=== PATIENT | male | born 1960 | race Caucasian/White ===

== ENCOUNTER 2022-06-18 12:48 | Inpatient (IN) | payer OTHER ==
[~2022-06-18] VITALS: Ht 175.3 cm; Wt 99.8 kg
[2022-06-18 13:07] VITALS: BP_SYST 108
[2022-06-18] MEDS ORDERED: MED4 PO (13:59)
[2022-06-18] MEDS ORDERED: BENZ100C92 PO (13:59)
[2022-06-18] MEDS ORDERED: ENOXAPARIN SODIUM 100 MG/ML SYRINGE SUBCUT ONE (14:15)
[2022-06-18] MEDS ORDERED: cefTRIAXone 1 GM IVPB PREMIX 50 ML IV ONE (14:15)
[2022-06-18] MEDS ORDERED: NACL 0.9% 1,000 ML IV ONE (14:15)
[2022-06-18] MEDS ORDERED: AZITHROMYCIN 500 MG in NS 250 ML IV ONE (14:15)
[2022-06-18 15:46] LABS: BASOPHILS % (AUTO) 0.1 % (0.0-2.0); EOSINOPHILS % (AUTO) 0.1 % (0.0-4.0); HEMATOCRIT 40.8 % (36-54); HEMOGLOBIN 14.3 g/dL (14.0-18.0); LYMPHOCYTES # (AUTO) 0.6 K/uL (1.0-5.5); LYMPHOCYTES % (AUTO) 4.3 % (20.5-51.5); MEAN CORPUSCULAR HEMOGLOBIN 31 pg (27-31); MEAN CORPUSCULAR HGB CONC 35 % (32-36); MEAN CORPUSCULAR VOLUME 88 fL (79.0-98.0); MONOCYTES # (AUTO) 0.4 K/uL (0.0-1.0); MONOCYTES % (AUTO) 2.6 % (1.7-9.3); NEUTROPHILS # (AUTO) 13.2 K/uL (1.8-7.7); NEUTROPHILS % (AUTO) 92.9 % (40.0-70.0); PLATELET COUNT (AUTO) 166 K/uL (130-430); RED BLOOD CELL COUNT(AUTO) 4.65 MIL/uL (4.2-6.2); RED CELL DISTRIBUTION WIDTH 14.1 % (9.0-15.0); WHITE BLOOD COUNT (AUTO) 14.2 K/uL (4.8-10.8)
[2022-06-18] MEDS ORDERED: AZITHROMYCIN 500 MG/VIAL (ZITHROMAX) IV ONE (15:57)
[2022-06-18 16:11] LABS: ALBUMIN 2.8 g/dL (3.4-4.8); CALCIUM 9.1 mg/dL (8.4-11.0); CREATININE 2.02 mg/dL (0.55-1.30); TOTAL BILIRUBIN 1.3 mg/dL (0.0-1.0)
[2022-06-18] MEDS ORDERED: VITD400 PO (16:43)
[2022-06-18] MEDS ORDERED: ALLO300T2 PO (16:43)
[2022-06-18] MEDS ORDERED: PANTOPRAZOLE SODIUM 40 MG TAB PO ONE (21:15)
[2022-06-18] MEDS ORDERED: ACETAMINOPHEN 325 MG TABLET PO PRN (21:15)
[2022-06-18] MEDS ORDERED: traMADol HCL HCL 50 MG TABLET (ULTRAM) PO PRN (21:30)
[2022-06-18 22:21] VITALS: BP_SYST 142
[2022-06-18] MEDS: NACL 0.9% 1,000 ML IV SCH (23:00)
[2022-06-18] MEDS: DEXAMETHASONE SOD PHOSPHATE 10 MG/ML VIAL IVP SCH (23:23)
[2022-06-18] MEDS: ASCORBIC ACID 500 MG TABLET PO SCH (23:23)
[2022-06-19] VITALS: BP_SYST 126
[2022-06-19] MEDS: NACL 0.9% 1,000 ML IV SCH ×3 (01:15→21:30)
[2022-06-19 07:21] LABS: BASOPHILS % (AUTO) 0.1 % (0.0-2.0); HEMATOCRIT 38.1 % (36-54); HEMOGLOBIN 13.3 g/dL (14.0-18.0); LYMPHOCYTES # (AUTO) 0.5 K/uL (1.0-5.5); LYMPHOCYTES % (AUTO) 4.9 % (20.5-51.5); MEAN CORPUSCULAR HEMOGLOBIN 31 pg (27-31); MEAN CORPUSCULAR HGB CONC 35 % (32-36); MEAN CORPUSCULAR VOLUME 88 fL (79.0-98.0); MONOCYTES # (AUTO) 0.1 K/uL (0.0-1.0); MONOCYTES % (AUTO) 1.2 % (1.7-9.3); NEUTROPHILS # (AUTO) 9.3 K/uL (1.8-7.7); NEUTROPHILS % (AUTO) 93.8 % (40.0-70.0); PLATELET COUNT (AUTO) 172 K/uL (130-430); RED BLOOD CELL COUNT(AUTO) 4.36 MIL/uL (4.2-6.2); RED CELL DISTRIBUTION WIDTH 13.9 % (9.0-15.0); WHITE BLOOD COUNT (AUTO) 9.9 K/uL (4.8-10.8)
[2022-06-19 07:47] LABS: ALBUMIN 2.4 g/dL (3.4-4.8); CREATININE 1.63 mg/dL (0.55-1.30); PHOSPHORUS 4.1 mg/dL (2.7-4.5); TOTAL BILIRUBIN 0.6 mg/dL (0.0-1.0)
[2022-06-19 08:00] VITALS: BP_SYST 133
[2022-06-19] MEDS: AZITHROMYCIN 500 MG in NS 250 ML IV SCH (08:57)
[2022-06-19] MEDS: PANTOPRAZOLE SODIUM 40 MG TAB PO SCH (08:58)
[2022-06-19] MEDS: ASCORBIC ACID 500 MG TABLET PO SCH ×2 (08:58→21:00)
[2022-06-19] MEDS: ENOXAPARIN SODIUM 40 MG/0.4 ML SYRINGE SUBCUT SCH ×2 (08:58→21:00)
[2022-06-19] MEDS: CHOLECALCIFEROL (VITAMIN D-3) 400 UNIT TABLET PO SCH ×2 (09:00→21:00)
[2022-06-19 12:00] VITALS: BP_SYST 129
[2022-06-19] MEDS ORDERED: ALLOPURINOL 100 MG TABLET (ZYLOPRIM) PO ONE (12:00)
[2022-06-19] MEDS: BARICITINIB -Non-Formulary 2 MG TABLET PO SCH (13:40)
[2022-06-19] MEDS: cefTRIAXone 1 GM in D5W 50 ML IV SCH (13:41)
[2022-06-19 16:00] VITALS: BP_SYST 121
[2022-06-19 20:00] VITALS: BP_SYST 132
[2022-06-19] MEDS: guaiFENesin/DEXTROMETHORPHAN 10 ML UDC PO PRN (21:00)
[2022-06-19] MEDS: DEXAMETHASONE SOD PHOSPHATE 10 MG/ML VIAL IVP SCH (21:00)
[2022-06-19] MEDS: TEMAZEPAM 15 MG CAPSULE PO PRN (22:00)
[2022-06-20] VITALS: BP_SYST 135
[2022-06-20] MEDS: NACL 0.9% 1,000 ML IV SCH ×2 (04:47→14:47)
[2022-06-20 08:00] VITALS: BP_SYST 121
[2022-06-20 08:37] LABS: BASOPHILS % (AUTO) 0.2 % (0.0-2.0); HEMATOCRIT 36.8 % (36-54); HEMOGLOBIN 13.1 g/dL (14.0-18.0); LYMPHOCYTES # (AUTO) 0.4 K/uL (1.0-5.5); LYMPHOCYTES % (AUTO) 4.3 % (20.5-51.5); MEAN CORPUSCULAR HEMOGLOBIN 31 pg (27-31); MEAN CORPUSCULAR HGB CONC 36 % (32-36); MEAN CORPUSCULAR VOLUME 88 fL (79.0-98.0); MONOCYTES # (AUTO) 0.2 K/uL (0.0-1.0); MONOCYTES % (AUTO) 1.7 % (1.7-9.3); NEUTROPHILS % (AUTO) 93.8 % (40.0-70.0); PLATELET COUNT (AUTO) 198 K/uL (130-430); RED BLOOD CELL COUNT(AUTO) 4.19 MIL/uL (4.2-6.2); RED CELL DISTRIBUTION WIDTH 13.6 % (9.0-15.0); WHITE BLOOD COUNT (AUTO) 9.6 K/uL (4.8-10.8)
[2022-06-20] MEDS: AZITHROMYCIN 500 MG in NS 250 ML IV SCH (09:34)
[2022-06-20] MEDS: BARICITINIB -Non-Formulary 2 MG TABLET PO SCH (09:34)
[2022-06-20] MEDS: PANTOPRAZOLE SODIUM 40 MG TAB PO SCH (09:35)
[2022-06-20] MEDS: ALLOPURINOL 100 MG TABLET (ZYLOPRIM) PO SCH (09:35)
[2022-06-20] MEDS: CHOLECALCIFEROL (VITAMIN D-3) 400 UNIT TABLET PO SCH ×2 (09:35→21:00)
[2022-06-20] MEDS: ENOXAPARIN SODIUM 40 MG/0.4 ML SYRINGE SUBCUT SCH ×2 (09:36→21:00)
[2022-06-20] MEDS: ASCORBIC ACID 500 MG TABLET PO SCH ×2 (09:38→21:00)
[2022-06-20 10:02] LABS: ALBUMIN 2.3 g/dL (3.4-4.8); CALCIUM 8.6 mg/dL (8.4-11.0); CREATININE 1.44 mg/dL (0.55-1.30); TOTAL BILIRUBIN 0.3 mg/dL (0.0-1.0)
[2022-06-20 12:00] VITALS: BP_SYST 111
[2022-06-20] MEDS: cefTRIAXone 1 GM in D5W 50 ML IV SCH (14:06)
[2022-06-20 14:28] LABS: BILIRUBIN,URINE NEGATIVE (NEGATIVE); BLOOD, URINE NEGATIVE (NEGATIVE); CLARITY/URINE CLEAR (CLEAR); COLOR,URINE YELLOW (YELLOW); GLUCOSE,URINE TRACE (NEGATIVE); KETONES,URINE NEGATIVE (NEGATIVE); LEUKOCYTE ESTERASE ,URINE NEGATIVE (NEGATIVE); NITRITE, URINE NEGATIVE (NEGATIVE); PH,URINE 5.5 (5.0-8.0); PROTEIN URINE NEGATIVE (NEGATIVE); UROBILINOGEN,URINE 0.2 (0.2-1.0)
[2022-06-20 14:34] VITALS: BP_SYST 135
[2022-06-20] MEDS: ALBUTEROL MDI INHALATION 8 GM INH INH SCH ×2 (14:57→20:15)
[2022-06-20 16:00] VITALS: BP_SYST 107
[2022-06-20] MEDS: MICAFUNGIN SODIUM 50 MG in NS 50 ML IV SCH (18:09)
[2022-06-20 20:00] VITALS: BP_SYST 139
[2022-06-20] MEDS: DEXAMETHASONE SOD PHOSPHATE 10 MG/ML VIAL IVP SCH (21:00)
[2022-06-20] MEDS: TEMAZEPAM 15 MG CAPSULE PO PRN (22:00)
[2022-06-20] MEDS: guaiFENesin/DEXTROMETHORPHAN 10 ML UDC PO PRN (23:30)
[2022-06-21] VITALS: BP_SYST 129
[2022-06-21] MEDS: NACL 0.9% 1,000 ML IV SCH ×2 (00:47→20:47)
[2022-06-21 08:00] VITALS: BP_SYST 144
[2022-06-21 09:24] LABS: BASOPHILS % (AUTO) 0.2 % (0.0-2.0); HEMATOCRIT 39.8 % (36-54); HEMOGLOBIN 13.7 g/dL (14.0-18.0); LYMPHOCYTES # (AUTO) 0.4 K/uL (1.0-5.5); LYMPHOCYTES % (AUTO) 5.9 % (20.5-51.5); MEAN CORPUSCULAR HEMOGLOBIN 30 pg (27-31); MEAN CORPUSCULAR HGB CONC 34 % (32-36); MEAN CORPUSCULAR VOLUME 88 fL (79.0-98.0); MONOCYTES # (AUTO) 0.2 K/uL (0.0-1.0); NEUTROPHILS # (AUTO) 6.1 K/uL (1.8-7.7); NEUTROPHILS % (AUTO) 90.9 % (40.0-70.0); PLATELET COUNT (AUTO) 222 K/uL (130-430); RED CELL DISTRIBUTION WIDTH 13.9 % (9.0-15.0); WHITE BLOOD COUNT (AUTO) 6.7 K/uL (4.8-10.8)
[2022-06-21] MEDS: ALBUTEROL MDI INHALATION 8 GM INH INH SCH ×3 (09:28→21:56)
[2022-06-21 09:49] LABS: ALBUMIN 2.4 g/dL (3.4-4.8); CALCIUM 8.5 mg/dL (8.4-11.0); CREATININE 1.43 mg/dL (0.55-1.30); TOTAL BILIRUBIN 0.3 mg/dL (0.0-1.0)
[2022-06-21] MEDS: BARICITINIB -Non-Formulary 2 MG TABLET PO SCH (09:53)
[2022-06-21] MEDS: ENOXAPARIN SODIUM 40 MG/0.4 ML SYRINGE SUBCUT SCH ×2 (09:54→21:00)
[2022-06-21] MEDS: CHOLECALCIFEROL (VITAMIN D-3) 400 UNIT TABLET PO SCH ×2 (09:55→21:00)
[2022-06-21] MEDS: PANTOPRAZOLE SODIUM 40 MG TAB PO SCH (09:56)
[2022-06-21] MEDS: ASCORBIC ACID 500 MG TABLET PO SCH ×2 (10:09→21:00)
[2022-06-21] MEDS: AZITHROMYCIN 500 MG in NS 250 ML IV SCH (10:10)
[2022-06-21] MEDS: ALLOPURINOL 100 MG TABLET (ZYLOPRIM) PO SCH (10:17)
[2022-06-21 12:00] VITALS: BP_SYST 140
[2022-06-21 12:04] LABS: C-REACTIVE PROTEIN QUANT 15.5 mg/dL (0-0.5)
[2022-06-21] MEDS: cefTRIAXone 1 GM in D5W 50 ML IV SCH (12:51)
[2022-06-21 16:00] VITALS: BP_SYST 134
[2022-06-21] MEDS: MICAFUNGIN SODIUM 50 MG in NS 50 ML IV SCH (18:12)
[2022-06-21] MEDS: DEXAMETHASONE SOD PHOSPHATE 10 MG/ML VIAL IVP SCH (21:00)
[2022-06-21] MEDS: TEMAZEPAM 15 MG CAPSULE PO PRN (22:00)
[2022-06-21] MEDS: guaiFENesin/DEXTROMETHORPHAN 10 ML UDC PO PRN (22:00)
[2022-06-21] MEDS ORDERED: guaiFENesin 200 MG/10 ML UDC ONE (22:39)
[2022-06-22] VITALS: BP_SYST 140
[2022-06-22] MEDS: CHOLECALCIFEROL (VITAMIN D-3) 400 UNIT TABLET PO SCH ×2 (08:29→21:00)
[2022-06-22] MEDS: ASCORBIC ACID 500 MG TABLET PO SCH ×2 (08:29→21:00)
[2022-06-22] MEDS: BARICITINIB -Non-Formulary 2 MG TABLET PO SCH (08:30)
[2022-06-22] MEDS: PANTOPRAZOLE SODIUM 40 MG TAB PO SCH (08:30)
[2022-06-22] MEDS: ALLOPURINOL 100 MG TABLET (ZYLOPRIM) PO SCH (08:30)
[2022-06-22] MEDS: AZITHROMYCIN 500 MG in NS 250 ML IV SCH (08:31)
[2022-06-22] MEDS: ENOXAPARIN SODIUM 40 MG/0.4 ML SYRINGE SUBCUT SCH ×2 (08:31→21:00)
[2022-06-22] MEDS: ALBUTEROL MDI INHALATION 8 GM INH INH SCH ×3 (09:23→20:00)
[2022-06-22 10:10] LABS: ALBUMIN 2.5 g/dL (3.4-4.8); CALCIUM 8.1 mg/dL (8.4-11.0); CREATININE 1.41 mg/dL (0.55-1.30); TOTAL BILIRUBIN 0.4 mg/dL (0.0-1.0)
[2022-06-22 12:22] VITALS: BP_SYST 141
[2022-06-22] MEDS: cefTRIAXone 1 GM in D5W 50 ML IV SCH (15:36)
[2022-06-22 17:13] VITALS: BP_SYST 154
[2022-06-22] MEDS: MICAFUNGIN SODIUM 50 MG in NS 50 ML IV SCH (18:19)
[2022-06-22 20:00] VITALS: BP_SYST 140
[2022-06-22] MEDS: NACL 0.9% 1,000 ML IV SCH (20:56)
[2022-06-22] MEDS: DEXAMETHASONE SOD PHOSPHATE 10 MG/ML VIAL IVP SCH (21:00)
[2022-06-22] MEDS ORDERED: CHOLECALCIFEROL (VITAMIN D-3) 400 UNIT TABLET ONE (21:56)
[2022-06-23 00:32] VITALS: BP_SYST 121
[2022-06-23] MEDS: AZITHROMYCIN 500 MG in NS 250 ML IV SCH (08:57)
[2022-06-23] MEDS: PANTOPRAZOLE SODIUM 40 MG TAB PO SCH (08:58)
[2022-06-23] MEDS: ALLOPURINOL 100 MG TABLET (ZYLOPRIM) PO SCH (08:58)
[2022-06-23] MEDS: ENOXAPARIN SODIUM 40 MG/0.4 ML SYRINGE SUBCUT SCH ×2 (08:59→22:42)
[2022-06-23] MEDS: ASCORBIC ACID 500 MG TABLET PO SCH ×2 (08:59→22:41)
[2022-06-23] MEDS: CHOLECALCIFEROL (VITAMIN D-3) 400 UNIT TABLET PO SCH ×2 (08:59→22:41)
[2022-06-23] MEDS: ALBUTEROL MDI INHALATION 8 GM INH INH SCH ×2 (09:00→14:12)
[2022-06-23] MEDS: BARICITINIB -Non-Formulary 2 MG TABLET PO SCH (09:00)
[2022-06-23 10:13] LABS: ALBUMIN 2.5 g/dL (3.4-4.8); CALCIUM 8.3 mg/dL (8.4-11.0); CREATININE 1.41 mg/dL (0.55-1.30); TOTAL BILIRUBIN 0.5 mg/dL (0.0-1.0)
[2022-06-23] MEDS: cefTRIAXone 1 GM in D5W 50 ML IV SCH (13:22)
[2022-06-23] MEDS: NACL 0.9% 1,000 ML IV SCH ×2 (13:22→22:47)
[2022-06-23 13:53] VITALS: BP_SYST 119
[2022-06-23 15:47] VITALS: BP_SYST 130
[2022-06-23] MEDS: MICAFUNGIN SODIUM 50 MG in NS 50 ML IV SCH (17:01)
[2022-06-23 17:43] VITALS: BP_SYST 130
[2022-06-23 19:00] VITALS: BP_SYST 132
[2022-06-23 20:00] VITALS: BP_SYST 132
[2022-06-23] MEDS: DEXAMETHASONE SOD PHOSPHATE 10 MG/ML VIAL IVP SCH (22:41)
[2022-06-24 00:09] VITALS: BP_SYST 121
[2022-06-24] MEDS: TEMAZEPAM 15 MG CAPSULE PO PRN ×2 (01:13→20:40)
[2022-06-24 08:00] VITALS: BP_SYST 141
[2022-06-24] MEDS: NACL 0.9% 1,000 ML IV SCH (08:47)
[2022-06-24] MEDS: ENOXAPARIN SODIUM 40 MG/0.4 ML SYRINGE SUBCUT SCH ×2 (09:41→20:28)
[2022-06-24] MEDS: CHOLECALCIFEROL (VITAMIN D-3) 400 UNIT TABLET PO SCH ×2 (09:41→20:28)
[2022-06-24] MEDS: ASCORBIC ACID 500 MG TABLET PO SCH ×2 (09:42→20:28)
[2022-06-24] MEDS: PANTOPRAZOLE SODIUM 40 MG TAB PO SCH (09:43)
[2022-06-24] MEDS: BARICITINIB -Non-Formulary 2 MG TABLET PO SCH (09:44)
[2022-06-24] MEDS: ALLOPURINOL 100 MG TABLET (ZYLOPRIM) PO SCH (09:46)
[2022-06-24 10:03] LABS: BASOPHILS % (AUTO) 0.2 % (0.0-2.0); HEMOGLOBIN 14.7 g/dL (14.0-18.0); LYMPHOCYTES # (AUTO) 0.5 K/uL (1.0-5.5); LYMPHOCYTES % (AUTO) 7.6 % (20.5-51.5); MEAN CORPUSCULAR HEMOGLOBIN 31 pg (27-31); MEAN CORPUSCULAR HGB CONC 34 % (32-36); MEAN CORPUSCULAR VOLUME 89 fL (79.0-98.0); MONOCYTES # (AUTO) 0.2 K/uL (0.0-1.0); MONOCYTES % (AUTO) 2.5 % (1.7-9.3); NEUTROPHILS # (AUTO) 5.9 K/uL (1.8-7.7); NEUTROPHILS % (AUTO) 89.7 % (40.0-70.0); PLATELET COUNT (AUTO) 274 K/uL (130-430); RED BLOOD CELL COUNT(AUTO) 4.83 MIL/uL (4.2-6.2); RED CELL DISTRIBUTION WIDTH 13.6 % (9.0-15.0); WHITE BLOOD COUNT (AUTO) 6.6 K/uL (4.8-10.8)
[2022-06-24 10:18] LABS: ALBUMIN 2.6 g/dL (3.4-4.8); CALCIUM 8.3 mg/dL (8.4-11.0); CREATININE 1.45 mg/dL (0.55-1.30); TOTAL BILIRUBIN 0.5 mg/dL (0.0-1.0)
[2022-06-24 12:10] VITALS: BP_SYST 113
[2022-06-24] MEDS: cefTRIAXone 1 GM in D5W 50 ML IV SCH (12:48)
[2022-06-24 16:20] VITALS: BP_SYST 140
[2022-06-24 20:00] VITALS: BP_SYST 135
[2022-06-24] MEDS: ALBUTEROL MDI INHALATION 8 GM INH INH SCH (20:05)
[2022-06-24] MEDS: DEXAMETHASONE SOD PHOSPHATE 10 MG/ML VIAL IVP SCH (20:28)
[2022-06-25 02:17] VITALS: BP_SYST 143
[2022-06-25 08:55] VITALS: BP_SYST 120
[2022-06-25] MEDS: ALLOPURINOL 100 MG TABLET (ZYLOPRIM) PO SCH (10:06)
[2022-06-25] MEDS: CHOLECALCIFEROL (VITAMIN D-3) 400 UNIT TABLET PO SCH ×2 (10:07→20:44)
[2022-06-25] MEDS: ASCORBIC ACID 500 MG TABLET PO SCH ×2 (10:07→20:44)
[2022-06-25] MEDS: BARICITINIB -Non-Formulary 2 MG TABLET PO SCH (10:07)
[2022-06-25] MEDS: PANTOPRAZOLE SODIUM 40 MG TAB PO SCH (10:07)
[2022-06-25] MEDS: ENOXAPARIN SODIUM 40 MG/0.4 ML SYRINGE SUBCUT SCH ×2 (10:09→20:44)
[2022-06-25] MEDS: ALBUTEROL MDI INHALATION 8 GM INH INH SCH ×3 (11:00→21:28)
[2022-06-25] MEDS: cefTRIAXone 1 GM in D5W 50 ML IV SCH (12:19)
[2022-06-25 12:40] VITALS: BP_SYST 129
[2022-06-25 16:26] VITALS: BP_SYST 125
[2022-06-25 20:00] VITALS: BP_SYST 138
[2022-06-25] MEDS: DEXAMETHASONE SOD PHOSPHATE 10 MG/ML VIAL IVP SCH (20:44)
[2022-06-25 23:34] LABS: BILIRUBIN,URINE NEGATIVE (NEGATIVE); BLOOD, URINE NEGATIVE (NEGATIVE); CLARITY/URINE CLEAR (CLEAR); COLOR,URINE YELLOW (YELLOW); GLUCOSE,URINE NEGATIVE (NEGATIVE); KETONES,URINE NEGATIVE (NEGATIVE); LEUKOCYTE ESTERASE ,URINE NEGATIVE (NEGATIVE); NITRITE, URINE NEGATIVE (NEGATIVE); PROTEIN URINE NEGATIVE (NEGATIVE); UROBILINOGEN,URINE 0.2 (0.2-1.0)
[2022-06-26 01:53] VITALS: BP_SYST 147
[2022-06-26 07:50] LABS: BASOPHILS % (AUTO) 0.3 % (0.0-2.0); HEMATOCRIT 42.5 % (36-54); HEMOGLOBIN 14.7 g/dL (14.0-18.0); LYMPHOCYTES # (AUTO) 0.5 K/uL (1.0-5.5); LYMPHOCYTES % (AUTO) 7.5 % (20.5-51.5); MEAN CORPUSCULAR HEMOGLOBIN 30 pg (27-31); MEAN CORPUSCULAR HGB CONC 35 % (32-36); MEAN CORPUSCULAR VOLUME 88 fL (79.0-98.0); MONOCYTES # (AUTO) 0.2 K/uL (0.0-1.0); MONOCYTES % (AUTO) 2.6 % (1.7-9.3); NEUTROPHILS # (AUTO) 6.4 K/uL (1.8-7.7); NEUTROPHILS % (AUTO) 89.6 % (40.0-70.0); PLATELET COUNT (AUTO) 317 K/uL (130-430); RED BLOOD CELL COUNT(AUTO) 4.84 MIL/uL (4.2-6.2); RED CELL DISTRIBUTION WIDTH 13.7 % (9.0-15.0); WHITE BLOOD COUNT (AUTO) 7.1 K/uL (4.8-10.8)
[2022-06-26 08:58] LABS: CALCIUM 9.2 mg/dL (8.4-11.0); CREATININE 1.4 mg/dL (0.55-1.30)
[2022-06-26] MEDS: ENOXAPARIN SODIUM 40 MG/0.4 ML SYRINGE SUBCUT SCH ×2 (09:32→21:28)
[2022-06-26] MEDS: ALLOPURINOL 100 MG TABLET (ZYLOPRIM) PO SCH (09:32)
[2022-06-26] MEDS: ASCORBIC ACID 500 MG TABLET PO SCH ×2 (09:32→21:27)
[2022-06-26] MEDS: CHOLECALCIFEROL (VITAMIN D-3) 400 UNIT TABLET PO SCH ×2 (09:32→21:27)
[2022-06-26] MEDS: PANTOPRAZOLE SODIUM 40 MG TAB PO SCH (09:32)
[2022-06-26] MEDS: BARICITINIB -Non-Formulary 2 MG TABLET PO SCH (09:33)
[2022-06-26 09:40] VITALS: BP_SYST 125
[2022-06-26] MEDS: ALBUTEROL MDI INHALATION 8 GM INH INH SCH ×4 (10:38→19:07)
[2022-06-26 13:06] VITALS: BP_SYST 125
[2022-06-26 14:14] VITALS: BP_SYST 120
[2022-06-26 17:45] VITALS: BP_SYST 126
[2022-06-26 19:30] VITALS: BP_SYST 142
[2022-06-26] MEDS: DEXAMETHASONE SOD PHOSPHATE 10 MG/ML VIAL IVP SCH (21:28)
[2022-06-26 21:51] LABS: CREATININE 1.4 mg/dL (0.55-1.30)
[2022-06-27 00:25] VITALS: BP_SYST 144
[2022-06-27 07:37] LABS: CALCIUM 8.6 mg/dL (8.4-11.0); CREATININE 1.48 mg/dL (0.55-1.30); PHOSPHORUS 4.9 mg/dL (2.7-4.5)
[2022-06-27 08:04] VITALS: BP_SYST 147
[2022-06-27] MEDS: ASCORBIC ACID 500 MG TABLET PO SCH (08:47)
[2022-06-27] MEDS: BARICITINIB -Non-Formulary 2 MG TABLET PO SCH (08:47)
[2022-06-27] MEDS: PANTOPRAZOLE SODIUM 40 MG TAB PO SCH (08:47)
[2022-06-27] MEDS: CHOLECALCIFEROL (VITAMIN D-3) 400 UNIT TABLET PO SCH (08:48)
[2022-06-27] MEDS: ENOXAPARIN SODIUM 40 MG/0.4 ML SYRINGE SUBCUT SCH (08:48)
[2022-06-27] MEDS: ALBUTEROL MDI INHALATION 8 GM INH INH SCH (08:52)
[2022-06-27] MEDS: ALLOPURINOL 100 MG TABLET (ZYLOPRIM) PO SCH (11:02)
[2022-06-27 14:07] VITALS: BP_SYST 147
[2022-06-27 19:54] LABS: CREATININE CLEARANCE,URINE 50.6 ml/min (80-120); CREATININE,URINE 50.9 MG/DL (30-125); TPROTEIN U,24HR 137.7 mg/24HR (0-130)
== END 2022-06-27 15:02 | disposition home or self-care (01) | DRG 177 ==
LOC: SED 12:48 → STU 16:11
PROVIDERS: ADMIT Internal Medicine; ATTEND Internal Medicine
PROC: XW033E5 Introduction of Remdesivir Anti-infective into Peripheral Vein, Percutaneous Approach, New Technology Group 5 (ICD-10-PCS; principal; 2022-06-19)
DX: U07.1 COVID-19 (principal); J12.82 Pneumonia due to coronavirus disease 2019; J96.00 Acute respiratory failure, unspecified whether with hypoxia or hypercapnia; N17.0 Acute kidney failure with tubular necrosis; K21.9 Gastro-esophageal reflux disease without esophagitis; E86.0 Dehydration; E66.9 Obesity, unspecified; R73.9 Hyperglycemia, unspecified; N18.9 Chronic kidney disease, unspecified; T38.0X5A Adverse effect of glucocorticoids and synthetic analogues, initial encounter; Z68.32 Body mass index [BMI] 32.0-32.9, adult; Y92.89 Other specified places as the place of occurrence of the external cause
CPT/HCPCS: 36415; 36600; 71045; 76770; 80048; 80053; 81003; 82575; 82803-TC; 83036; 83605; 83615; 83735; 83880; 84100; 84156; 85025; 85379; 86140; 87040; 87305; 94640; 94760; 96365; 96367; 99285; G0378; J0456; J0696; J1100; J1650; J7030; J7050; J7060